=== PATIENT | female | born 1965 | race Hispanic/Latino ===

== ENCOUNTER → 2017-03-15 | Day surgery (SDC) | payer OTHER ==
[~2017-03-15] MED LIST: FENTANYL CITRATE/PF 100MCG/2 ML INJ ONE; LIDOCAINE HCL 2% LOCAL INJ 5 ML SDV VIAL INJ ONE; MIDAZOLAM HCL 2 MG/2 ML VIAL ONE; PROPOFOL IV EMULSION 10 MG/ML 50 ML VIAL ONE
--- NOTE | 2017-03-15 10:09 | Operative Report ---
DATE OF PROCEDURE: March 15, 2017 REFERRING PHYSICIAN: Dr. Jez Rangel PROCEDURE PERFORMED: Colonoscopy and polypectomy. INDICATIONS FOR COLONOSCOPY: Colorectal cancer screening. MEDICATION: The patient was done under MAC. Please see anesthesiologist's note. PROCEDURE: With the patient in the left lateral decubitus position, the flexible fiberoptic Olympus colonoscope was inserted into the rectum with ease and advanced all the way to the cecum. The scope was then withdrawn slowly. Mucosa overlying the cecum, ascending colon, transverse, and descending appeared to be within normal limits. Two polyps were hot biopsied from the sigmoid. Two polyps were hot biopsied from the rectum. The scope was then retroflexed into the distal rectum, and the area around the dentate line appeared to be within normal limits. The scope was then straightened out. The rectosigmoid area, as well as the distal rectal area were decompressed. The scope was subsequently withdrawn. The patient tolerated the procedure well. IMPRESSION 1. Sigmoid colon polyps times 2, hot biopsied. 2. Rectal polyps times 2, hot biopsied. PLAN: Follow up histology. Initiate high-fiber and low-fat diet. Initiate high-fiber supplement. The patient will need a followup colonoscopy in 3 years. Job#: [id number] RI cc:JEZ RANGEL DO
== END | disposition home or self-care (01) ==
LOC: OR 06:01
PROVIDERS: ATTEND Internal Medicine Gastroenterology
DX: Z12.11 Encounter for screening for malignant neoplasm of colon (principal); K63.5 Polyp of colon; K62.1 Rectal polyp; K76.0 Fatty (change of) liver, not elsewhere classified; N20.0 Calculus of kidney; F41.9 Anxiety disorder, unspecified; Z68.37 Body mass index [BMI] 37.0-37.9, adult
CPT/HCPCS: 45384; J2001; J2250; 45378

== ENCOUNTER → 2017-11-15 | Outpatient (CLI) | payer OTHER ==
--- NOTE | 2017-11-16 10:08 | Diagnostic Imaging Report ---
#[id number] - MGDXBIL #BILATERAL DIGITAL DIAGNOSTIC MAMMOGRAM WITH CAD: 11/15/2017 Comparison is made to exams dated: 07/02/2016 mammogram and 06/06/2015 mammogram - [facility]. Current study contains 6 films. Patient complains of a bloody nipple discharge from the right breast. The tissue of both breasts is heterogeneously dense. This may lower the sensitivity of mammography. Current study was also evaluated with a Computer Aided Detection (CAD) system. There are benign calcifications in both breast. No significant masses, calcifications, or other findings are seen in either breast. IMPRESSION: INCOMPLETE: NEEDS ADDITIONAL IMAGING EVALUATION No definite mass or reason for a bloody discharge. Due to the abnormal history of a bloody right nipple discharge, a focused right ultrasound is recommended and will be performed today. Gagan Moore Jr., D.O. cw/:11/15/2017 13:30:58 Public Welfare Director: Avelina BUITRAGO(Joshua)(M), [facility] letter sent: Additional Imaging Needed Mammogram BI-RADS: 0 Indeterminate
--- NOTE | 2017-11-16 10:08 | Diagnostic Imaging Report ---
#[id number] - USBRECOMRT ULTRASOUND OF THE RIGHT BREAST : 11/15/2017 Comparison is made to exam dated: 11/15/2017 mammogram - [facility]. Color flow and real-time ultrasound were performed on the entire right breast with scanning in all four quadrants, retrareolar region and the right axilla. -In the retroareolar region in the 3 o'clock position there is a dilated duct that appears to lead to a soft hypechoic soft tissue nodule. Uncertain whether this represents a papiloma or sludge. An MRI is recommended in this patient with a bloody nipple discharge. IMPRESSION: INCOMPLETE: NEEDS ADDITIONAL IMAGING EVALUATION - FOLLOW-UP RECOMMENDED Prominent dilated duct with possible soft tissue filling defect vs debris. An MRI is recommended in this patient with a bloody nipple discharge. The patient was informed to the need for additional imaging. Gagan Moore Jr., D.O. cw/:11/15/2017 13:39:06 [employer] Supervisor: MARYELLEN BUITRAGO, [facility] letter sent: Additional Imaging Needed Ultrasound BI-RADS: 0 Indeterminate
== END ==
LOC: MAMMO 10:45
PROVIDERS: ATTEND Obstetrics & Gynecology
DX: N64.52 Nipple discharge (principal)
CPT/HCPCS: 77066

== ENCOUNTER → 2020-07-04 | Outpatient (CLI) | payer OTHER | LOC: MAMMO 10:20 | PROVIDERS: ATTEND Obstetrics & Gynecology | DX: Z12.31 Encounter for screening mammogram for malignant neoplasm of breast (principal) | CPT/HCPCS: 77067 ==

== ENCOUNTER → 2024-02-16 | Outpatient (REF) | payer OTHER | LOC: MAMMO 09:40 | PROVIDERS: ATTEND Obstetrics & Gynecology | DX: N64.4 Mastodynia (principal) | CPT/HCPCS: 77066 ==